=== PATIENT | female | born 1965 | race Caucasian/White ===

== ENCOUNTER → 2020-09-03 | Outpatient (CLI) | payer OTHER ==
[~2020-09-03] MED LIST: AUGMENTIN 500-500 MG PO; IBUPROFEN800 MG PO; LEVOTHYROXINE50 MC1 PO; LEXAPRO20 MG PO; MELOXICAM15 MG PO; SYNTHROID25 MCG PO; VITAMIN C500 M4 PO; VITAMIN D; ZINC; ZYRTEC10 MG PO
[2020-09-03 09:14] LABS: HEMOGLOBIN 13.2 gm/dl (12.3-15.3); RED BLOOD COUNT 4.23 M/UL (4.00-5.10); WHITE BLOOD COUNT 8.1 K/UL (4.5-11.0)
== END ==
LOC: OPSV2 08:00
PROVIDERS: Obstetrics & Gynecology
DX: Z01.812 Encounter for preprocedural laboratory examination (principal); N95.0 Postmenopausal bleeding
CPT/HCPCS: 36415; 81001; 85025

== ENCOUNTER → 2020-09-12 | Day surgery (SDC) | payer OTHER | END | disposition home or self-care (01) | LOC: OR 10:52 | DX: N84.0 Polyp of corpus uteri (principal); E78.00 Pure hypercholesterolemia, unspecified; E03.9 Hypothyroidism, unspecified; K58.9 Irritable bowel syndrome, unspecified; F41.1 Generalized anxiety disorder; K21.9 Gastro-esophageal reflux disease without esophagitis; Z88.2 Allergy status to sulfonamides; Z88.5 Allergy status to narcotic agent; Z79.899 Other long term (current) drug therapy | CPT/HCPCS: 71045; 93005; J0696; J1100; J1885; J2250; J2405; J3010; J7120 ==

== ENCOUNTER → 2021-06-16 | Outpatient (CLI) | payer OTHER | LOC: EXRD 08:29 | DX: D05.12 Intraductal carcinoma in situ of left breast (principal) | CPT/HCPCS: 77080 ==

== ENCOUNTER → 2021-06-16 | Outpatient (CLI) | payer OTHER ==
[2021-06-16 10:46] LABS: HEMOGLOBIN 12.6 gm/dl (12.3-15.3); RED BLOOD COUNT 4.06 M/UL (4.00-5.10); WHITE BLOOD COUNT 8.9 K/UL (4.5-11.0)
[2021-06-16 11:22] LABS: BUN/CREATININE RATIO 12 (0-10)
== END ==
LOC: LAB 10:26
PROVIDERS: Internal Medicine Hematology & Oncology
DX: D05.12 Intraductal carcinoma in situ of left breast (principal)
CPT/HCPCS: 36415; 80053; 85025